=== PATIENT | male | born 1985 ===

== ENCOUNTER 2021-03-10 17:40 | Emergency (ER) | payer OTHER, SELFPAY | END 2021-03-10 22:14 | disposition left against medical advice (07) | PROVIDERS: Emergency Provider Emergency Medicine; PCP Internal Medicine | DX: R05.9 Cough, unspecified (principal); R07.89 Other chest pain ==

== ENCOUNTER 2023-08-20 11:55 | Emergency (ER) | payer OTHER, SELFPAY ==
--- NOTE | ~2023-08-20 | XR_ITS ---
EXAMINATION: XR LUMBOSACRAL SPINE CLINICAL INFORMATION: Pain COMPARISON: None available. TECHNIQUE: Three views of the lumbosacral spine. FINDINGS: Mild curvature of the lumbar sacral spine to the right. Bone alignment is otherwise normal. No fracture or dislocation. Normal disc spaces. Normal paraspinal soft tissues. XR/XR lumbar spine 2-3V IMPRESSION: Mild curvature of the lumbar sacral spine to the right.
--- NOTE | ~2023-08-20 | CT_ITS ---
EXAMINATION: CT LUMBAR SPINE WITHOUT CONTRAST CLINICAL INFORMATION: Midline lumbar tenderness. COMPARISON: X-ray lumbar spine dated 08/20/2023. TECHNIQUE: Multidetector helical imaging acquired in the axial plane with generation of reformatted acquisitions. This CT examination was performed using dose optimization techniques as appropriate, variously including the following: *Automated exposure control *Adjustment of mA and/or kV according to patient size (this includes techniques or standardized protocols for targeted exams where dose is matched to indication/reason for exam; i.e. extremities or head) *Use of iterative reconstruction technique DLP; 559 mGy-cm FINDINGS: No compression fractures are seen. The disc spaces are maintained. No acute fracture or subluxation is identified. No pars defects are visible. Mild lower lumbar facet arthropathy is noted. The imaged bony pelvis is relatively normal. There is a shallow, broad-based central disc protrusion impressing upon the ventral thecal sac at the L4-L5 level without central canal stenosis. Bulging disc also mildly encroaches upon the right neural foramen. There is a small central disc protrusion also visible at the L5-S1 level without central canal stenosis or foraminal narrowing. No significant facet arthropathy is seen. The paraspinal soft tissues are normal. 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 CT/CT lumbar spine wo IV con IMPRESSION: No acute fracture. Mild lower lumbar spondylosis with small disc protrusions at the L4-L5 and L5-S1 levels.
--- NOTE | 2023-08-20 12:01 | ED_ITS ---
HPI - Back Pain/Injury General Chief Complaint: Back Pain/Injury Stated Complaint: back pain down legs Time Seen by Provider: 08/20/23 14:51 Source: patient and RN notes reviewed Mode of arrival: ambulatory Limitations: no limitations History of Present Illness HPI Narrative: 38-year-old male with no significant pmhx presents to the ED today for evaluation of acute right lower back pain occurring prior to arrival. He admits to bending forward to clam picker his grandson and while lifting him up, immediately felt pain in his right lower back. Pain is now radiating down his right leg to his knee. Pain is exacerbated with bearing weight on the right leg. States he tried icy hot at home without improvement in pain. He did not take any other OTC pain medications prior to arrival. He denies numbness/tingling/weakness of the lower extremities. Denies fever, chills, bowel or bladder incontinence or retention, saddle anesthesia, dysuria or hematuria. Denies IV drug use. Denies history of spinal surgeries. Related Data Previous Rx's Medication Instructions Recorded cyclobenzaprine 5 mg tablet 5 mg PO Q8H PRN muscle spasm #7 08/20/23 tabs lidocaine 5 % topical patch 1 patch topical DAILY #15 ea 08/20/23 (Lidoderm) naproxen 500 mg tablet 500 mg PO Q8-12H PRN pain (scale 08/20/23 score 4-6) #14 tabs prednisone 20 mg tablet 20 mg PO DAILY 5 days #5 tabs 08/20/23 Allergies Allergy/AdvReac Type Severity Reaction Status Date / Time No Known Allergies Allergy Unverified 02/08/20 15:25 Review of Systems Review of Systems: Constitutional: No fever, chills, fatigue, night sweats, weight changes ENT/Mouth: No ear pain, hearing loss, nasal congestion, sinus pain, rhinorrhea, sore throat Eyes: No eye pain, swelling, redness, vision changes, discharge Cardio: No chest pain, palpitations, [place], orthopnea, peripheral edema Pulm: No SOB, cough, sputum, wheezing, dyspnea, hemoptysis GI: No nausea, vomiting, hematemesis, abdominal pain, diarrhea, constipation, hematochezia, melena : No irregular bleeding, dysuria, frequency, urgency, hesitancy, hematuria, flank pain, urinary flow changes, urinary incontinence or retention MSK: +back pain, No neck pain, joint pain, myalgias Skin: No lesions, rashes Neuro: No weakness, numbness, paresthesias, LOC, dizziness, headache All other systems reviewed and are negative. [facility] Past Medical History Attestation statement: The following information was validated with the patient. Source: old records reviewed and nursing notes reviewed Social History Social History Advance Directives: No Advance Directives Information Provided: Yes Physical Exam Vital Signs: Vital Signs: Last Vital Signs Temp 97.6 F 08/20/23 19:23 Pulse 60 08/20/23 19:23 Resp 16 08/20/23 19:23 BP 102/63 08/20/23 19:23 Pulse Ox 99 08/20/23 19:23 O2 Del Method Room Air 08/20/23 19:23 BMI result Body Mass Index 34.5 Vital signs stable, afebrile Const: General: cooperative, healthy appearing, comfortable, no acute distress, alert, awake and Physically active Orientation/consciousness: patient oriented x3 HEENT: Head: Yes normal to inspection, Yes normocephalic and Yes atraumatic Eyes: General: appearance normal, both eyes and all related structures Conjunctivae: conjunctivae normal Sclerae: sclerae normal Pupils: Equal, round and reactive pupils present EOM: EOMs intact bilaterally Neck: Other: + no cervical midline spinous tenderness or step-off deformity. Neck: Yes normal visual inspection, Yes full ROM and Yes no meningeal signs Resp: Effort & Inspection: normal respiratory effort Auscultation: clear to auscultation bilaterally Cardio: Rate: regular rate Rhythm: regular rhythm GI: Inspection: Yes normal to inspection Palpation (GI): Soft to palpation and nontender : General: Yes no CVA tenderness Back/Spine/Pelvis: Other: + no midline spinous tenderness or step- off deformity. There is right lumbar paraspinal muscle tenderness to palpation without palpable mass or warmth. Palpable spasm noted over right lumbar paraspinal muscles. Ambulating with antalgic gait secondary to pain. NV intact distally. 2+ opt/dp pulses bilaterally. 2+ patellar DTRs bilaterally. Sensation intact throughout. Back: no CVA tenderness Skin: General skin exam: no rashes or lesions noted Neuro: Other: Strength 5/5 intact throughout.? No saddle anesthesia.? Sensation intact to light touch.? Neurovascular intact distally.? General: patient oriented x3, gait normal and no meningeal signs Cranial nerves: Yes Equal, round and reactive pupils present Gait exam (Neuro): Normal gait present Course Course Course Narrative: This is an RME: Additional HPI, ROS, PE not included below will be deferred to primary provider. Patient is a 38-year-old male who presents emergency department for evaluation of back pain. He reports that he was bending to try and assist his grandson out of a walking type of chair when he was stuck when he felt a sudden pain to the right lower back pain is now radiating down the right leg up to the knee. Denies numbness or tingling. Denies bladder bowel dysfunction. Did not trialed any OTC medication at home. Reports that he is unable to bear weight on the right leg due to the pain. Plan: XR, ibuprofen Reevaluation(s) Reevaluation #1: 1500-- X-ray of lumbar spine shows mild curvature of the lumbar sacral spine to the right. Alignment is otherwise normal and there is no acute fracture or dislocation. There are no previous radiographs to compare to. Patient likely has muscle spasm/strain of the right paraspinal muscles. Will order Flexeril, lidocaine patch and Motrin. 1655-- On re-evaluation, patient reports little improvement in pain an hour after flexeril and motrin administration. I was successful at turning the patient over in bed to apply lidocaine patch however this exacerbated his pain. He is still unable to sit up straight secondary to the pain. He is asking for more pain medication. IV Dilaudid ordered for 10/10 pain. Radiographs essentially unremarkable however given severity of pain, will order CT lumbar spine and re-evaluate. 1899-- CT spine shows mild arthritis of the lumbar spine along with small disc protrusion at L4-L5 and L5-S1. Discussed work up results with patient. He is now able to sit up in bed and ambulate with steady gait to bathroom. Will discharge home with flexeril, naproxen, and prednisone. Patient has remained stable throughout ED visit today. Discussed worrisome signs and symptoms and when to return to the ED. All questions answered at this time. Patient is agreeable with disposition and stable for discharge. Medications Administered Discontinued Medications Generic Name Dose Route Start Last Admin Trade Name Ian PRN Reason Stop Dose Admin Cyclobenzaprine HCl 10 mg 08/20/23 15:01 08/20/23 15:07 Cyclobenzaprine Hcl 10 Mg Tablet PO 08/20/23 15:02 10 mg ONCE ONE Administration Hydromorphone HCl 0.5 mg 08/20/23 16:55 08/20/23 17:08 Hydromorphone Hcl 0.5 Mg/0.5 Ml Syringe IVPUSH 08/20/23 16:56 0.5 mg ONCE ONE Administration Protocol Ibuprofen 600 mg 08/20/23 12:06 08/20/23 12:10 Ibuprofen 600 Mg Tablet PO 08/20/23 12:07 600 mg ONCE ONE Administration Lidocaine 1 patch 08/20/23 15:01 08/20/23 15:07 Lidocaine 4 % Patch Adh..Patch TRANSDERMA 08/20/23 15:02 1 patch ONCE ONE Administration Protocol Medical Decision Making Medical Decision Making MDM Narrative: 38-year-old male with no significant pmhx presents to the ED today for evalu ation of acute right lower back pain occurring prior to arrival. Vital signs are stable. He is nontoxic-appearing and in no acute distress. On exam, there is no midline spinous tenderness or step-off deformity. There is right lumbar paraspinal muscle tenderness to palpation without palpable mass or warmth. Palpable spasm noted over right lumbar paraspinal muscles. Ambulating with antalgic gait secondary to pain. NV intact distally. 2+ pt/dp pulses bilaterally. 2+ patellar DTRs bilaterally. Sensation intact throughout. Differential diagnosis includes MSK sprain/strain, spasm, fracture, subluxation, disc herniation, sciatica. Unlikely cord compression, cauda equina, Guillain- [place], epidural abscess Plan for imaging, pain control and re-evaluation. Differential Diagnosis Differential Diagnoses: The differential diagnosis associated with the presentation includes as above Admission/Observation Not indicated. Independent Interpretation I performed an independent interpretation of an: Plain X-Ray and CT Scan Interpretation: I have reviewed xray and agree with radiologist's interpretation. I have reviewed CT scan and agree with radiologist's interpretation. Radiology Impression Discussion of test interpretation with radiology: I have reviewed the radiologist's reading. Radiologist Impression: EXAMINATION: XR LUMBOSACRAL SPINE CLINICAL INFORMATION: Pain COMPARISON: None available. TECHNIQUE: Three views of the lumbosacral spine. FINDINGS: Mild curvature of the lumbar sacral spine to the right. Bone alignment is otherwise normal. No fracture or dislocation. Normal disc spaces. Normal paraspinal soft tissues. XR/XR lumbar spine 2-3V IMPRESSION: Mild curvature of the lumbar sacral spine to the right. EXAMINATION: CT LUMBAR SPINE WITHOUT CONTRAST CLINICAL INFORMATION: Midline lumbar tenderness. COMPARISON: X-ray lumbar spine dated 08/20/2023. TECHNIQUE: Multidetector helical imaging acquired in the axial plane with generation of reformatted acquisitions. This CT examination was performed using dose optimization techniques as appropriate, variously including the following: *Automated exposure control *Adjustment of mA and/or kV according to patient size (this includes techniques or standardized protocols for targeted exams where dose is matched to indication/reason for exam; i.e. extremities or head) *Use of iterative reconstruction technique DLP; 559 mGy-cm FINDINGS: No compression fractures are seen. The disc spaces are maintained. No acute fracture or subluxation is identified. No pars defects are visible. Mild lower lumbar facet arthropathy is noted. The imaged bony pelvis is relatively normal. There is a shallow, broad-based central disc protrusion impressing upon the ventral thecal sac at the L4-L5 level without central canal stenosis. Bulging disc also mildly encroaches upon the right neural foramen. There is a small central disc protrusion also visible at the L5-S1 level without central canal stenosis or foraminal narrowing. No significant facet arthropathy is seen. The paraspinal soft tissues are normal. 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 CT/CT lumbar spine wo IV con IMPRESSION: No acute fracture. Mild lower lumbar spondylosis with small disc protrusions at the L4-L5 and L5-S1 levels. External Record Review External record reviewed: Inpatient record Prescription Management I considered prescription management with: Pain Medication and Other (flexeril, prednisone) Social Determinants Patient?s care significantly limited by Social Determinants of Health including: Other Social Determinant of Health Critical Care Time Critical Care Time Critical Care Time: Yes Total Critical Care Time: 60 Attestation: Critical care time in the amount of 60 minutes has been provided to the patient in terms of direct patient care, frequent reevaluation on IV dilaudid, review and interpretation of medical data and results, and management of potentially life-threatening conditions. This is all outside of any medical procedures. Discharge Plan Discharge Clinical Impression: Strain of lumbar region, Lumbar radiculopathy Patient Disposition: Home, Self-Care Instructions: Cyclobenzaprine (By mouth), Low Back Strain (ED), Acute Low Back Pain (ED), Back Pain (ED), Lower Back Exercises (ED) Additional Instructions: Your imaging studies today did not show acute fracture. As discussed, the CT of your back shows small disc protrusions at L4-L5 and L5- S1. Avoid bending, lifting, or twisting. Use ice several times per day for 20 minutes at a time for the next 48 hours and then change to heat. Flexeril is a muscle relaxer. Take this at night as it makes you drowsy. Do not drive, drink alcohol, or operate machinery while taking it. Naproxen is an anti-inflammatory / pain medication. Take with food. Do not take this with Ibuprofen. Lidoderm patches are numbing patches. Apply to painful areas. In addition you may take Tylenol at home. Follow up with your primary care provider as needed If your pain worsens, if you develop new numbness, tingling, weakness, loss of bowel or bladder function call 911 or return to the ER immediately for e valuation. Prescriptions: New cyclobenzaprine 5 mg tablet 5 mg PO Q8H PRN (Reason: muscle spasm) Qty: 7 0RF lidocaine [Lidoderm] 5 % adhesive patch,medicated 1 patch topical DAILY Qty: 15 0RF Rx Instructions: leave on most painful area for up to 12 hrs naproxen 500 mg tablet 500 mg PO Q8-12H PRN (Reason: pain (scale score 4-6)) Qty: 14 0RF prednisone 20 mg tablet 20 mg PO DAILY 5 Days Qty: 5 0RF Referrals: ED Physician,Generic [Physician] - Stand Alone Forms: Work/School Release Interventions: ED Discharge Assessment Last Done: 08/20/23 19:23 Discharge Date/Time: 08/20/23 19:38
[2023-08-20 12:03] VITALS: BP 112/76; PULSE 80; RESP 18; TEMP 37; O2SAT 98; BMI 34.5
[2023-08-20] MEDS: Ibuprofen 600 MG TABLET PO (12:10)
--- NOTE | 2023-08-20 14:54 | PC.NURSE ---
Pt had to bed picked up by 2 staff members to get removed from w.c to bed. Pt in pain, back spasms, unable to put weight on legs. reporting pain is in right leg, happened today when he was playing with his grandson
[2023-08-20 14:56] VITALS: BP 128/70; PULSE 67; RESP 16; O2SAT 97
[2023-08-20] MEDS: Cyclobenzaprine HCl 10 MG TABLET PO (15:07)
[2023-08-20] MEDS: Lidocaine 4 % Patch ADH..PATCH 1 PATCH TRANSDERMA (15:07)
[2023-08-20 17:08] VITALS: RESP 22
[2023-08-20] MEDS: HYDROmorphone HCl 0.5 MG/0.5 ML SYRINGE IVPUSH (17:08)
[2023-08-20 18:52] VITALS: BP 102/63; PULSE 60; RESP 16; TEMP 36.4; O2SAT 99
[2023-08-20 19:23] VITALS: BP 102/63; PULSE 60; RESP 16; TEMP 36.4; O2SAT 99
== END 2023-08-20 19:38 | disposition home or self-care (01) ==
PROVIDERS: Emergency Provider Emergency Medicine Emergency Medical Services; PCP Internal Medicine
DX: S39.012A Strain of muscle, fascia and tendon of lower back, initial encounter (principal); M54.16 Radiculopathy, lumbar region; X58.XXXA Exposure to other specified factors, initial encounter; Y93.9 Activity, unspecified; Y92.9 Unspecified place or not applicable; Y99.8 Other external cause status
CPT/HCPCS: 72100; 72132; 96374; 99284; 99285; J1170

== ENCOUNTER 2025-02-01 16:40 | Emergency (ER) | payer OTHER, SELFPAY ==
[2025-02-01 16:58] VITALS: BP 109/67; PULSE 69; RESP 16; TEMP 36.8; O2SAT 98; BMI 26.6
--- NOTE | 2025-02-01 17:01 | ED.GENADULT ---
HPI - General Adult General Chief complaint: Abdominal Pain Stated complaint: abd pain left side Related Data Previous Rx's ?Medication ?Instructions ?Recorded cyclobenzaprine 5 mg tablet 5 mg PO Q8H PRN muscle spasm #7 08/20/23 tabs lidocaine 5 % topical patch 1 patch topical DAILY #15 ea 08/20/23 (Lidoderm) naproxen 500 mg tablet 500 mg PO Q8-12H PRN pain (scale 08/20/23 score 4-6) #14 tabs prednisone 20 mg tablet 20 mg PO DAILY 5 days #5 tabs 08/20/23 Allergies Allergy/AdvReac Type Severity Reaction Status Date / Time No Known Allergies Allergy Verified 02/01/25 16:59 [facility] Social History Social History Advance Directives: No Advance Directives Information Provided: No Physical Exam ED Vital Signs: Vital Signs - 24 hr 02/01/25 16:58 Temperature 98.3 F Pulse Rate 69 Respiratory Rate 16 Blood Pressure 109/67 Pulse Oximetry 98 Oxygen Delivery Method Room Air BMI result Body Mass Index 26.6 Course Course Course Narrative: This is a Rapid Medical Examination (RME) performed by James Herman PA-C in triage. Full HPI, ROS, assessment and treatment plan per primary provider in the Main ED. Hx: 39 yo M here for eval of left sided abd pain since this morning, intermittent. no N/V/D, urinary sx. Plan: labs, UA Reevaluation(s) Reevaluation #1: Patient left the emergency department before myself or any of the other clinicians could review or explain physical exam findings, test results, need or lack there of for additional testing, treatment options, or a treatment plan. Medical Decision Making Lab Data 02/01/25 17:08 02/01/25 17:08 Labs: Lab Results 02/01/25 Range/Units 17:08 WBC 7.6 (4.8-10.8) X10*3/uL RBC 5.32 (4.60-5.80) X10*6/uL Hgb 15.4 (14.0-18.0) g/dl Hct 44.9 (42.0-52.0) % MCV 84.4 (80.0-98.0) fL MCH 28.9 (27.0-33.0) pg MCHC 34.3 (31.0-36.0) g/dl RDW 11.9 (11.0-16.0) % Plt Count 260 (160-400) X10*3/uL MPV 9.6 (9.4-12.4) fL Immature Gran % (Auto) 0.5 H (0.0-0.4) % Neut % (Auto) 57.9 (45-73) % Lymph % (Auto) 32.6 (20-40) % [place] % (Auto) 7.7 (2-11) % Eos % (Auto) 1.2 (0-4) % Baso % (Auto) 0.1 (0-2) % Lymph # (Auto) 2.5 (1.2-4.9) X10*3/uL [place] # (Auto) 0.6 (0.1-1.2) X10*3/uL Eos # (Auto) 0.1 (0.0-0.4) X10*3/uL Baso # (Auto) 0.0 (0.0-0.2) X10*3/uL Abs Immat Gran (auto) 0.04 H (0.00-0.03) X10*3/uL Absolute Neuts (auto) 4.4 (2.0-8.3) x10*3/uL Absolute Nucleated RBC 0.000 (0.0-0.012) X10*3/uL Nucleated RBC % (auto) 0.0 (0.0-0.2) /100WBC Sodium 141 (135-145) mmol/L Potassium 4.1 (3.3-5.1) mmol/L Chloride 109 H (96-108) mmol/L Carbon Dioxide 24 (22-29) mmol/L Anion Gap 12 (12-20) BUN 10 (9-16) mg/dL Creatinine 1.12 (0.5-1.4) mg/dL Estim Creat Clear Calc 83.9 Estimated GFR > 60 Random Glucose 89 (60-115) mg/dL Calcium 8.8 (8.4-10.2) mg/dL Magnesium 2.1 (1.6-2.6) mg/dL Total Bilirubin 0.3 (0.0-1.0) mg/dL AST 22 (5-37) U/L ALT 18 (0-40) U/L Alkaline Phosphatase 73 (39-117) U/L Total Protein 7.1 (6.5-8.0) g/dL Albumin 4.2 (3.5-5.0) g/dL Lipase 39 (8-78) U/L Discharge Plan Discharge Clinical Impression: Abdominal pain Patient Disposition: Left W/O Completing Treatment Prescriptions: No Action cyclobenzaprine 5 mg tablet 5 mg PO Q8H PRN (Reason: muscle spasm) Qty: 7 0RF lidocaine [Lidoderm] 5 % adhesive patch,medicated 1 patch topical DAILY Qty: 15 0RF Rx Instructions: leave on most painful area for up to 12 hrs naproxen 500 mg tablet 500 mg PO Q8-12H PRN (Reason: pain (scale score 4-6)) Qty: 14 0RF prednisone 20 mg tablet 20 mg PO DAILY 5 Days Qty: 5 0RF Discharge Date/Time: 02/01/25 23:06
[2025-02-01 17:14] LABS: MANUAL DIFF FLAG NO
[2025-02-01 17:15] LABS: Hematocrit 44.9 % (42.0-52.0); Hemoglobin 15.4 g/dl (14.0-18.0); Imm Gran Abs Auto 0.04 X10*3/uL (0.00-0.03); Imm Gran Pct Auto 0.5 % (0.0-0.4); Lymphocytes Absolute Auto 2.5 X10*3/uL (1.2-4.9); Mean Corpuscular HGB Conc 34.3 g/dl (31.0-36.0); Mean Corpuscular Hemoglobin 28.9 pg (27.0-33.0); Mean Corpuscular Volume 84.4 fL (80.0-98.0); NRBC Abs Auto 0.000 X10*3/uL (0.0-0.012); NRBC Pct Auto 0.0 /100WBC (0.0-0.2); Platelet Count 260 X10*3/uL (160-400); Red Blood Count 5.32 X10*6/uL (4.60-5.80); White Blood Count 7.6 X10*3/uL (4.8-10.8)
[2025-02-01 17:28] LABS: Alanine Aminotransferase 18 U/L (0-40); Albumin Level 4.2 g/dL (3.5-5.0); Alkaline Phosphatase 73 U/L (39-117); Anion Gap 12 (12-20); Aspartate Amino Transferase 22 U/L (5-37); Blood Urea Nitrogen 10 mg/dL (9-16); Calcium 8.8 mg/dL (8.4-10.2); Carbon Dioxide 24 mmol/L (22-29); Chloride 109 mmol/L (96-108); Creatinine Clr Calc Pharmacy 83.9; Estimated Glomerular Filt Rate > 60; Lipase 39 U/L (8-78); Magnesium 2.1 mg/dL (1.6-2.6); Potassium 4.1 mmol/L (3.3-5.1); Sodium 141 mmol/L (135-145); Total Protein 7.1 g/dL (6.5-8.0)
--- OUTSIDE RECORDS SUMMARY | 2025-02-01 23:06 | XMS_ITS | Clinical Summary ---
Author Organization [facility] [address] [place] [address] [place] [phone] Phone Care Team Providers Care Correspondence Clerk Name Role Phone Shashank Caldera MD Primary Care Provider [phone] Allergies No known active allergies Medications cyclobenzaprine (FLEXERIL) 10 mg tablet Take 1 tablet (10 mg total) by mouth 3 (three) times a day if needed. 08/24/2023 Active lidocaine (LIDODERM) 5 % patch Place 1 Patch onto the skin every 24 hours. Apply for no more than 12 hours in any 24 hour period. 08/24/2023 Active carBAMazepine (CARBATROL) 200 mg 12 hr capsule Take 600 mg by mouth 3 times daily. Active levETIRAcetam (KEPPRA) 500 mg tablet Take by mouth. 4 tabs twice daily Active zonisamide (ZONEGRAN) 100 mg capsule Take 6 Caps by mouth daily. 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 Low back pain 03/12/2014 Seizure disorder (CMS/HCC V24, CMS/HCC V28) 02/22 Encounters Date Type Department Care Team Description 11/21/2024 9:00 AM EDT Office Visit Adult Medicine [address] [phone] Shashank Caldera MD Routine physical examination (Primary Dx); High cholesterol; Screening for diabetes mellitus; Seizure disorder (CMS/HCC V24, CMS/HCC V28) from Last 3 Months Immunizations Name Administration Dates Next Due Tdap Tetanus diptheria acell ular pertussis (Boostrix; Adacel) 7yo and older 11/21/2024,05/03/2014 Medical History Medical History Date Comments Seizure disorder ([facility] V24, CMS/[facility] V28) 02/22 DX:Seizure disorder (HCC) Family History Medical History Relation Name Comments Hypertension Father Diabetes Mother Relation Name Status Comments Father Mother Social History Tobacco Use Types Packs/Day Years Used Date Smoking Tobacco: Every Day Cigarettes Smokeless Tobacco: Never Tobacco Cessation:Ready to Q uit: Not Asked; Counseling Given: Not Answered Alcohol Use Standard Drinks/Week Comments Yes 0 (1 standard drink = 0.6 oz pur e alcohol) occ Housing Instability Answer Date Recorde d Are you worried that in the next 2 months you may not have stable housing? No 11/21/2024 Food Access & Nutrition Answer Date Rec orded Do you have access to a vari ety of food including fruits and vegetables? Yes 11/21/2024 Access to Healthcare Answer Date Record ed Within the last 3 months, sonja castaneda many times did you visit the emergency department for your medical care? 0 11/21/2024 Health Literacy Answer Date Recorded How often do you need to hav e someone help you when you read instructions, pamphlets, or other written material from your doctor or pharmacy? Never 11/21/2024 Caregiver: How often do you need to have someone help you when you read instructions, pamphlets, or other written material from your doctor or pharmacy? Not on file 11/21/2024 Financial Risk Answer Date Recorded How hard is it for you to pa y for the very basics like food, housing, medical care, and air conditioning / heating? Not very hard 11/21/2024 Transportation Answer Date Recorded Has the lack of transportati on kept you from meetings, work, or from getting things needed for daily living? No Has the lack of transportati on kept you from medical appointments or from getting medications? No 11/21/2024 Social Isolation Answer Date Recorded How often do you feel lonely or isolated from th ose around you? Never 11/21/2024 Food Risk Answer Date Recorded Within the past 12 months we worried whether our food would run out before we got money to buy more. Never true 11/21/2024 Within the past 12 months th e food we bought just didn't last and we didn't have money to get more. Never true 11/21/2024 Dependent Care Answer Date Recorded Do you need help finding or paying for care for your loved ones. For example, child welfare caseworker or elderly care for an older adult? No 11/21/2024 Education Answer Date Recorded Do you think completing more education or training, like finishing a GED, going to college, or learning a trade, would be helpful for you? No 11/21/2024 Employment and Income Answer Date Recor ded During the last four weeks, have you been actively looking for work? No 11/21/2024 Living Situation Answer Date Recorded What is your living situation? 0 11/21/2024 Sex and Gender Information Value Date Recorded Sex Assigned at Not on file Legal Sex Male 12:59 AM EST Gender Identity Not on file Sexual Orientation Not on file Obstetrics History Last Filed Vital Signs Vital Sign Reading Time Taken Comments Blood Pressure 110/66 11/21/2024 8:47 AM EDT Pulse 88 11/21/2024 8:47 AM EDT Temperature 36.6 C (97.8 F) 11/21/2024 8:47 AM EDT Respiratory Rate 14 11/21/2024 8:47 AM EDT Oxygen Saturation 98% 11/21/2024 8:47 AM EDT Inhaled Oxygen Concentration - - Weight 81.6 kg (180 lb) 11/21/2024 8:47 AM EDT Height 167.6 cm (5' 6 ) 11/21/2024 8:47 AM EDT Body Mass Index 29.05 11/21/2024 8:47 AM EDT Plan of Treatment Upcoming Encounters Date Type Department Care Team (Late st Contact Info) Description 11/28/2025 9:00 AM EDT Office Visit Adult Medicine [address] [phone] Shashank Caldera MD [address] [place] [address] Health Maintenance Due Date Last Done Comments Pneumococcal Vaccine: Pediatrics (0 to 5 Years) and At-Risk Patients (6 to 49 Years) (2 of 2 - PCV) 07/16/2011 07/16/2010 HIV Screening 05/02/2022 Hepatitis C Screening 05/02/2022 COVID-19 Vaccine (3 - season) 2025 11/13/2020, 10/23/2020 Influenza Vaccine (#1) 2025 07/15/2016, 2010 Social Influencers of Health Screening 11/21/2025 11/21/2024 Cholesterol Screening (Lipid Panel) 11/21/2029 11/21/2024, 01/19/2023 DTaP,Tdap,and Td Vaccines (8 - Td or Tdap) 11/21/2034 11/21/2024, 05/03/2014, 05/29/1999, Additional history exists IPV Vaccines Completed 12/23/1988, 06/24, 07/14/1984, Additional history exists MMR Vaccines Completed 03/23/1995, 05/18/1989 Hepatitis B Vaccines Completed 06/17/2000, 07/22/1999, 05/29/1999 Depression Screening Completed 11/21/2024 HIB Vaccines Aged Out No longer eligi ble based on patient's age to complete this topic HPV Vaccines Aged Out No longer eligi ble based on patient's age to complete this topic Hepatitis A Vaccines Aged Out No long er eligible based on patient's age to complete this topic Meningococcal ACWY Vaccine Aged Out N o longer eligible based on patient's age to complete this topic Meningococcal B Vaccine Aged Out No l onger eligible based on patient's age to complete this topic RSV Immunization Patients Under 20 months Aged Out No longer eligible based on patient's age to complete this topic Varicella Vaccines Aged Out No longer eligible based on patient's age to complete this topic Procedures Procedure Name Priority Date/Time Associated Diagnosis Comments CBC WITH AUTO DIFFERENTIAL Routine 11/21/2024 9:41 AM EDT Routine physical examination LIPID PANEL WITH REFLEX TO DIRECT LDL Routine 11/21/2024 9:41 AM EDT Routine physical examination High cholesterol CBC AND DIFFERENTIAL Routine 11/21/2024 9:41 AM EDT Routine physical examination COMPREHENSIVE METABOLIC PANEL Routine 11/21/2024 9:41 AM EDT Routine physical examination Screening for diabetes mellitus from Last 3 Months Results * (ABNORMAL) Lipid panel with reflex to direct LDL (11/21/2024 9:41 AM EDT) Cholesterol 173 0 - 200 mg/dL LAB CHEMISTRY METHOD 11/21/2024 2:05 PM EDT [facility] Triglycerides 163(H) 0 - 150 mg/dL LAB CHEMISTRY METHOD 11/21/2024 2:05 PM EDT [facility] HDL 33(L) >=40 mg/dL LAB CHEMISTRY METHOD 11/21/2024 2:05 PM EDT [facility] LDL Calculated 107(H) 0 - 100 mg/dL LAB CHEMISTRY METHOD 11/21/2024 2:05 PM EDT [facility] VLDL Cholesterol Dav 32.6 mg/dL LAB CHEMISTRY METHOD 11/21/2024 2:05 PM EDT [facility] Non HDL Chol. (LDL+VLDL) 140 <145 mg/dL LAB CHEMISTRY METHOD 11/21/2024 2:05 PM EDT [facility] Chol/HDL Ratio 5.2(H) 0.0 - 4.4 LAB CHEMISTRY METHOD 11/21/2024 2:05 PM T [facility] Blood Venous blood specimen / Unknown Venipuncture / Unknown 11/21/2024 9:41 AM EDT 11/21/2024 9:41 AM EDT us Shashank Caldera MD LAB BLOOD ORDERABLES Final Resu lt [facility] [address] [place] [address], * (ABNORMAL) CBC auto differential (11/21/2024 9:41 AM EDT) Pathologist [facility] WBC 6.7 4.8 - 10.8 K/mcL LAB HEMETOLOGY METHOD 11/21/2024 12:15 PM T [facility] RBC 5.50 4.50 - 5.50 M/mcL LAB HEMETOLOGY METHOD 11/21/2024 12:[address] [facility] Hemoglobin 16.3 13.5 - 17.5 g/dL LAB HEMETOLOGY METHOD 11/21/2024 12:[address] [facility] Hematocrit 48.3 42.0 - 54.0 % LAB HEMETOLOGY METHOD 11/21/2024 12:[address] [facility] MCV 88.1 79.0 - 98.0 FL LAB HEMETOLOGY METHOD 11/21/2024 12:[address] [facility] MCH 29.7 27.0 - 32.0 pcg LAB HEMETOLOGY METHOD 11/21/2024 12:[address] [facility] MCHC 33.7 32.0 - 37.0 g/dL LAB HEMETOLOGY METHOD 11/21/2024 12:[address] [facility] RDW 12.1 11.0 - 15.0 % LAB HEMETOLOGY METHOD 11/21/2024 12:[address] [facility] Platelets 218 130 - 400 K/mcL LAB HEMETOLOGY METHOD 11/21/2024 12:[address] [facility] MPV 11.5(H) 7.0 - 11.0 FL LAB HEMETOLOGY METHOD 11/21/2024 12:[address] [facility] NRBC 0.0 <1.0 % LAB HEMETOLOGY METHOD 11/21/2024 12:[address] [facility] NRBC Absolute 0.00 <0.10 K/mcL LAB HEMETOLOGY METHOD 11/21/2024 12:[address] [facility] Neutrophils Relative 61.3 % LAB HEMETOLOGY METHOD 11/21/2024 12:[address] [facility] Lymphocytes Relative 29.1 % LAB HEMETOLOGY METHOD 11/21/2024 12:[address] [facility] Monocytes Relative 7.7 % LAB HEMETOLOGY METHOD 11/21/2024 12:[address] [facility] Eosinophils Relative 1.0 % LAB HEMETOLOGY METHOD 11/21/2024 12:[address] [facility] Basophils Relative 0.3 % LAB HEMETOLOGY METHOD 11/21/2024 12:[address] [facility] Immature Granulocytes Relative 0.6 % LAB HEMETOLOGY METHOD 11/21/2024 12:[address] [facility] Neutrophils Absolute 4.13 1.50 - 7.00 K/mcL LAB HEMETOLOGY METHOD 11/21/2024 12:[address] [facility] Lymphocytes Absolute 1.96 1.00 - 5.00 K/mcL LAB HEMETOLOGY METHOD 11/21/2024 12:[address] [facility] Monocytes Absolute 0.52 0.20 - 1.00 K/mcL LAB HEMETOLOGY METHOD 11/21/2024 12:[address] [facility] Eosinophils Absolute 0.07 0.00 - 0.50 K/mcL LAB HEMETOLOGY METHOD 11/21/2024 12:[address] [facility] Basophils Absolute 0.02 0.00 - 0.20 K/mcL LAB HEMETOLOGY METHOD 11/21/2024 12:[address] [facility] Immature Granulocytes Absolute 0.04(H) 0.00 - 0.03 K/mcL LAB HEMETOLOGY METHOD 11/21/2024 12:[address] [facility] Blood Venous blood specimen / Unknown Venipuncture / Unknown 11/21/2024 9:41 AM EDT 11/21/2024 9:41 AM EDT us Shashank Caldera MD LAB BLOOD ORDERABLES Final Resu lt [facility] [address] [place] [address], [place] [phone] * (ABNORMAL) Comprehensive metabolic panel (11/21/2024 9:41 AM EDT) Sodium 140 133 - 145 mmol/L LAB CHEMISTRY METHOD 11/21/2024 2:[address] [facility] Potassium 4.2 3.5 - 5.5 mmol/L LAB CHEMISTRY METHOD 11/21/2024 2:[address] [facility] Chloride 111(H) 96 - 110 mmol/L LAB CHEMISTRY METHOD 11/21/2024 2:[address] [facility] CO2 23 21 - 32 mmol/L LAB CHEMISTRY METHOD 11/21/2024 2:[address] [facility] Anion Gap 6 3 - 11 LAB CHEMISTRY METHOD 11/21/2024 2:[address] [facility] Glucose 87 70 - 100 mg/dL LAB CHEMISTRY METHOD 11/21/2024 2:[address] [facility] BUN 8 5 - 25 mg/dL LAB CHEMISTRY METHOD 11/21/2024 2:[address] [facility] Creatinine 1.04 0.70 - 1.30 mg/dL LAB CHEMISTRY METHOD 11/21/2024 2:[address] [facility] eGFR 93 >=60 mL/min/1. 73m2 LAB CHEMISTRY METHOD 11/21/2024 2:[address] [facility] Comment:Calculation based on the Chronic Kidney Disease Epidemiology Collaboration (CKD-EPI) equation refit without adjustment for race. BUN/Creatinine Ratio 7.7 LAB CHEMISTRY METHOD 11/21/2024 2:[address] [facility] Calcium 9.2 8.5 - 10.5 mg/dL LAB CHEMISTRY METHOD 11/21/2024 2:05 PM EDT [facility] AST (SGOT) 23 10 - 42 unit/L LAB CHEMISTRY METHOD 11/21/2024 2:[address] [facility] ALT (SGPT) 29 10 - 60 unit/L LAB CHEMISTRY METHOD 11/21/2024 2:[address] [facility] Alkaline Phosphatase 89 42 - 121 unit/L LAB CHE[facility]STRY METHOD [facility] Total Protein 7.2 6.0 - 8.0 g/dL LAB CHEMISTRY METHOD 11/21/2024 2:[address] [facility] Albumin 3.8 3.2 - 5.0 g/dL LAB CHEMISTRY METHOD 11/21/2024 2:[address] [facility] Total Bilirubin 0.3 0.0 - 1.4 mg/dL LAB CHEMISTRY METHOD 11/21/2024 2:[address] [facility] Blood Venous blood specimen / Unknown Venipuncture / Unknown 11/21/2024 9:41 AM EDT 11/21/2024 9:41 AM EDT us Shashank Caldera MD LAB BLOOD ORDERABLES Final Resu lt [facility] [address] [place] [address], from Last 3 Months Insurance [facility] [employer] Care Teams Correspondence Clerk Relationship Specialty Start Date End Date Shashank Caldera MD PCP - General Internal Medicine 01/05/14
--- OUTSIDE RECORDS SUMMARY | 2025-02-01 23:07 | XMS_ITS | Clinical Summary ---
Author Organization [facility] Address [address] [place] [address] Phone Care Team Providers Care Package Maker Name Role Phone Oliver Zarate Primary Care Provider Immunizations Immunization Administration Dates Next Due DTP 12/23/1988, 7,07/14/1984,1983 Hep B, ped/adol 06/17/2000,07/22/1999,05/29/1999 MMR 03/23/1995,05/18/1989 OPV 12/23/1988, 7,07/14/1984,1983 Td (adult) (MBL), 2 Lf tetan us toxoid, PF, adsorbed 05/29/1999 Social History Tobacco Use Types Packs/Day Years Used Date Smoking Tobacco: Never Assessed Sex and Gender Information Value Date Recorded Sex Assigned at Not on file Legal Sex Male 4:42 PM EDT Gender Identity Not on file Sexual Orientation Not on file Plan of Treatment Health Maintenance Due Date Last Done Comments Varicella Vaccines (1 of 2 - 13+ 2-dose series) 1996 DTaP,Tdap,and Td Vaccines (5 - Tdap) 05/30/1999 05/29/1999, 12/23/1988, 07/12/1986, Additional history exists HPV Vaccines (1 - 3-dose SCDM series) 2010 Influenza Vaccines (#1) 2024 COVID-19 Vaccine ( - season) 2025 IPV Vaccines Completed 12/23/1988, 06/24, 07/14/1984, Additional history exists MMR Vaccines Completed 03/23/1995, 05/18/1989 Hepatitis B Vaccines Completed 06/17/2000, 07/22/1999, 05/29/1999 HIB Vaccines Aged Out No longer eligi ble based on patient's age to complete this topic Hepatitis A Vaccines Aged Out No long er eligible based on patient's age to complete this topic Men B Vaccine Aged Out No longer elig ible based on patient's age to complete this topic Meningococcal Vaccine Aged Out No gustavo david eligible based on patient's age to complete this topic Pneumococcal Vaccine Aged Out No long er eligible based on patient's age to complete this topic Care Teams Package Maker Relationship Specialty Start Date End Date Oliver Zarate [address] [place] [address] PCP - General 01/01/17
--- OUTSIDE RECORDS SUMMARY | 2025-02-01 23:07 | XMS_ITS | Encounter Summary ---
Author Organization [facility] Address [address] [place] [phone] Phone Care Team Providers Care Physician Office Secretary Name Role Phone Oliver Zarate Primary Care Provider [phone] Encounter Details Date Type Department Care Team (Late st Contact Info) Description 03/24/2012 Documentation [facility] [place] [address] [place] [address] Family Medicine, Physician [address] [place], [place] [phone] Social History Tobacco Use Types Packs/Day Years Used Date Smoking Tobacco: Never Assessed Sex and Gender Information Value Date Recorded Sex Assigned at Not on file Legal Sex Male 4:42 PM EDT Gender Identity Not on file Sexual Orientation Not on file documented as of this encounter Plan of Treatment Not on file documented as of this encounter Visit Diagnoses Not on filedocumented in this encounter Care Teams Physician Office Secretary Relationship Specialty Start Date End Date Oliver Zarate [address] [place] [address] PCP - General 01/01/17 documented as of this encounter
== END 2025-02-01 23:06 | disposition left against medical advice (07) ==
PROVIDERS: Physician Assistant Medical; Emergency Provider Emergency Medicine; PCP Internal Medicine
DX: R10.9 Unspecified abdominal pain (principal); Z53.21 Procedure and treatment not carried out due to patient leaving prior to being seen by health care provider
CPT/HCPCS: 36415; 80053; 83690; 83735; 85025; 99281; 99283

== ENCOUNTER 2025-02-03 12:59 | Emergency (ER) | payer OTHER, SELFPAY ==
--- NOTE | ~2025-02-03 | CT_ITS ---
CLINICAL HISTORY: LLQ abd pain CT abdomen and pelvis with contrast Comparison: None provided Findings: Hiatal hernia. 90 degree organoaxial rotation of the right kidney with the renal pelvis ventral and position. There is diffuse fecal material seen throughout the colon. Proximal sigmoid colon pericolonic area of hyperattenuating rim low-attenuation center, 1.2 x 1 cm, image number 71 of 117 series 3. The appendix is within normal limits. The prostate is within normal limits. The bones are intact. IMPRESSION: 1. Proximal sigmoid colon epiploic appendagitis. 2. Constipation. This document has been electronically signed by: Mervin Warren MD on 02/03/2025 16:50:34
[2025-02-03 13:09] VITALS: BP 104/60; PULSE 85; RESP 18; TEMP 36.7; O2SAT 94; BMI 27.4
--- NOTE | 2025-02-03 13:10 | ED.GENADULT ---
HPI - General Adult General Chief complaint: Abdominal Pain Stated complaint: abd pain Time Seen by Provider: 02/03/25 15:00 Source: patient Mode of arrival: ambulatory Limitations: no limitations History of Present Illness ED Provider: FLORES HERMAN PA-C HPI narrative: 39-year-old male presents to the ED today for evaluation of abdominal pain x4 days. Reports pain is localized to his left lower abdomen and has been intermittent since onset. Describes this as a cramping sensation. Pain is currently a 9/10. 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 Denies history of similar. Reports 1 episode of loose stool yesterday. Denies fever, chills, nausea, vomiting, urinary symptoms, flank pain. No history of abdominal surgery. Related Data Previous Rx's ?Medication ?Instructions ?Recorded cyclobenzaprine 5 mg tablet 5 mg PO Q8H PRN muscle spasm #7 08/20/23 tabs lidocaine 5 % topical patch 1 patch topical DAILY #15 ea 08/20/23 (Lidoderm) naproxen 500 mg tablet 500 mg PO Q8-12H PRN pain (scale 08/20/23 score 4-6) #14 tabs prednisone 20 mg tablet 20 mg PO DAILY 5 days #5 tabs 08/20/23 ibuprofen 600 mg tablet 600 mg PO Q8H PRN pain (scale 02/03/25 score 4-6) #30 tabs Allergies Allergy/AdvReac Type Severity Reaction Status Date / Time No Known Allergies Allergy Verified 02/03/25 13:11 Review of Systems Review of Systems: Yes all other systems are reviewed and are negative PMFSH Past Medical History Attestation statement: The following information was validated with the patient. Source: old records reviewed and nursing notes reviewed Social History Social History Advance Directives: No Advance Directives Information Provided: No Do you have a plan to hurt others: No Plan Physical Exam ED Vital Signs: Vital Signs - 24 hr 02/03/25 13:09 02/03/25 14:44 02/03/25 16:29 Temperature 98.1 F Pulse Rate 85 72 65 Respiratory Rate 18 18 18 Blood Pressure 104/60 101/56 L 99/62 Pulse Oximetry 94 97 98 Oxygen Delivery Method Room Air Room Air Room Air BMI result Body Mass Index 27.4 Vital signs stable General: Well appearing, in no acute distress. Skin: Warm, dry, intact. No rashes or lesions. Head: Normocephalic, atraumatic. EENT: Hearing is intact b/l. Conjunctiva clear. Sclera is anicteric. PERRLA. EOM intact. Moist mucous membranes.? Cardiac: Chest wall symmetric. RRR Lungs: Normal respiratory effort without accessory muscle use. CTA bilaterally Abdomen: soft, nondistended, tender to palpation of left lower quadrant with guarding. No rebound tenderness. Active bowel sounds x4. Back: No midline spinous or paraspinal tenderness. No step off deformity. no cvat. Ext: Upper and lower extremities atraumatic, without tenderness, deformity, swelling or erythema Neuro: AOx3. Normal speech. Ambulating with steady gait. Course Course Course Narrative: Rapid medical examination performed in triage by Estefanía Harris PA-C. Patient is a 39 year old assigned male at presenting to the emergency department with abdominal pain. Detailed physical exam and review of systems are deferred to the astronaut mission specialist. Labs ordered. Patient placed back in the waiting room pending room availability and results. Reevaluation(s) Reevaluation #1: CBC without leukocytosis or left shift. No anemia. H&H stable. Chemistry without acute electrolyte abnormality requiring intervention. No LUZ. Random glucose 124 without anion gap. Liver function WNL. Urine without infection. CT abdomen/pelvis showing normal appendix. There is diffuse fecal material seen throughout the colon consistent with constipation. Proximal sigmoid colon epiploic appendagitis, consistent with presentation. > discussed workup results with patient. He reports relief after receiving Toradol and IV fluids. Educated patient on pain control. Motrin sent to pharmacy. Advised to follow up with general surgery if pain continues. No surgical intervention warranted at this time. Patient has remained stable throughout ED visit today. Discussed worrisome signs and symptoms and when to return to the ED. All questions answered at this time. Patient is agreeable with disposition and stable for discharge. Medications Administered Discontinued Medications Generic Name Dose Route Start Last Admin Trade Name Freq PRN Reason Stop Dose Admin Sodium Chloride 1,000 mls @ 999 mls/hr 02/03/25 15:30 02/03/25 17:08 Ns IV 02/03/25 16:30 Infused .Q1H1M ALEJANDRA Infusion Iohexol 100 ml 02/03/25 16:01 02/03/25 16:01 Iohexol 350 Mg/Ml 100 Ml Infus..Btl IV 02/03/25 16:02 85 ml ONCE ONE Administration Ketorolac Tromethamine 15 mg 02/03/25 15:17 02/03/25 15:42 Ketorolac Tromethamine 15 Mg/Ml Vial IVPUSH 02/03/25 15:18 15 mg ONCE ONE Administration Medical Decision Making Medical Decision Making [facility] Narrative: 39-year-old male presents to the ED today for evaluation of abdominal pain x4 days. Patient is well-appearing, lying comfortably on the exam bed. On exam, abdomen is soft, nondistended, tender to palpation of left lower quadrant with guarding. No rebound tenderness. Active bowel sounds x4. Differential diagnoses: appendicitis, diverticulitis, diverticulosis, UTI, constipation Abdominal exam without peritoneal signs. No evidence of acute abdomen at this time. Well appearing. Low suspicion for acute hepatobiliary disease (including acute cholecystitis), acute infectious processes (pneumonia, hepatitis, pyelonephritis), vascular catastrophe, bowel obstruction or viscus perforation, testicular torsion, orchitis, epidydymitis. Presentation not consistent with other acute, emergent causes of abdominal pain at this time. Plan: labs, UA, CT AP, pain control, fluids, serial reassessment Differential Diagnosis Differential Diagnoses: The differential diagnosis associated with the presentation includes As above Admission/Observation not indicated. Lab Data [facility] Lab Attestation statement: I reviewed the patient's lab results. as above. 02/03/25 13:31 02/03/25 13:31 Labs: Lab Results 02/03/25 02/03/25 Range/Units 13:31 16:31 WBC 6.6 (4.8-10.8) X10*3/uL RBC 5.36 (4.60-5.80) X10*6/uL Hgb 15.8 (14.0-18.0) g/dl Hct 44.7 (42.0-52.0) % MCV 83.4 (80.0-98.0) fL MCH 29.5 (27.0-33.0) pg MCHC 35.3 (31.0-36.0) g/dl RDW 11.9 (11.0-16.0) % Plt Count 259 (160-400) X10*3/uL MPV 9.5 (9.4-12.4) fL Immature Gran % (Auto) 0.3 (0.0-0.4) % Neut % (Auto) 61.5 (45-73) % Lymph % (Auto) 30.9 (20-40) % [place] % (Auto) 6.5 (2-11) % Eos % (Auto) 0.8 (0-4) % Baso % (Auto) 0.0 (0-2) % Lymph # (Auto) 2.0 (1.2-4.9) X10*3/uL [place] # (Auto) 0.4 (0.1-1.2) X10*3/uL Eos # (Auto) 0.1 (0.0-0.4) X10*3/uL Baso # (Auto) 0.0 (0.0-0.2) X10*3/uL Abs Immat Gran (auto) 0.02 (0.00-0.03) X10*3/uL Absolute Neuts (auto) 4.1 (2.0-8.3) x10*3/uL Absolute Nucleated RBC 0.000 (0.0-0.012) X10*3/uL Nucleated RBC % (auto) 0.0 (0.0-0.2) /100WBC Sodium 141 (135-145) mmol/L Potassium 3.9 (3.3-5.1) mmol/L Chloride 109 H (96-108) mmol/L Carbon Dioxide 24 (22-29) mmol/L Anion Gap 12 (12-20) BUN 9 (9-16) mg/dL Creatinine 1.13 (0.5-1.4) mg/dL Estim Creat Clear Calc 86.8 Estimated GFR > 60 Random Glucose 124 H (60-115) mg/dL Calcium 9.1 (8.4-10.2) mg/dL Magnesium 2.1 (1.6-2.6) mg/dL Total Bilirubin 0.5 (0.0-1.0) mg/dL AST 23 (5-37) U/L ALT 17 (0-40) U/L Alkaline Phosphatase 79 (39-117) U/L Total Protein 7.3 (6.5-8.0) g/dL Albumin 4.3 (3.5-5.0) g/dL Urine Color Yellow Urine Appearance Clear Urine pH 6.5 (5.0-9.0) Ur Specific [place] 1.020 (1.005-1.025) Urine Protein Negative (Neg-Trace) mg/dL Urine Glucose (UA) Negative (Negative) mg/dL Urine Ketones Negative (Negative) mg/dL Urine Blood Negative (Negative) Urine Nitrite Negative (Negative) Ur Leukocyte Esterase Negative (Negative) Independent Interpretation I performed an independent interpretation of an: CT Scan Interpretation: ct a/p without bowl obstruction, no periappendiceal edema Radiology Impression Discussion of test interpretation with radiology: I have reviewed the radiologist's reading. Radiologist Impression: Procedure(s): CT abdomen pelvis w IV con Accession Number(s): [id number] cc: Shashank Caldera III, MD; Flores Herman~ Report Number: [id number]: Total DLP = 544.00 mGy-cm Reason for Exam: LLQ abd pain ADDENDUMThis document has been electronically signed by: Mervin Warren MD on 02/03/2025 16:50:34 ADDENDUM: This report was discussed with Batsheva BARLOW on Feb 03, 2025 16:56:00 EDT. This document has been electronically signed by: Ramona Boland on 02/03/2025 16:56:44 Addendum Dictated By: Mervin Warren MD Addendum Signed By: <Electronically signed by Mervin Warren MD in OV> 02/03/251656 Addendum Cosigned By: DD/ TD/TT: 02/03/25 CLINICAL HISTORY: LLQ abd pain CT abdomen and pelvis with contrast Comparison: None provided Findings: Hiatal hernia. 90 degree organoaxial rotation of the right kidney with the renal pelvis ventral and position. There is diffuse fecal material seen throughout the colon. Proximal sigmoid colon pericolonic area of hyperattenuating rim low-attenuation center, 1.2 x 1 cm, image number 71 of 117 series 3. The appendix is within normal limits. The prostate is within normal limits. The bones are intact. IMPRESSION: 1. Proximal sigmoid colon epiploic appendagitis. 2. Constipation. This document has been electronically signed by: Mervin Warren MD on 02/03/2025 16:50:34 External Record Review External record reviewed: Inpatient record Prescription Management I considered prescription management with: Pain Medication Social Determinants Patient?s care significantly limited by Social Determinants of Health including: Other Social Determinant of Health Critical Care Time Critical Care Time Critical Care Time: Yes Total Critical Care Time: 31 Attestation: Critical care time in the amount of 31 minutes has been provided to the patient in terms of direct patient care, frequent reevaluation, review and interpretation of medical data and results, and management of potentially life-threatening conditions. This is all outside of any medical procedures. Discharge Plan Discharge Clinical Impression: Epiploic appendagitis, Constipation Patient Disposition: Home, Self-Care Instructions: Exploratory Laparoscopy (DC) Additional Instructions: You were evaluated in the ED today for left lower abdominal pain. Your blood work is reassuring. Your urine does not demonstrate infection. As discussed, the CT scan of your abdomen shows epiploic appendagitis . Essentially, a small outpouching of fat on your colon is inflamed. This area will eventually necrose and fall off. This does not require surgical intervention. This is not require treatment with antibiotics. Management is with pain control. You were treated with an anti-inflammatory pain medication in the ED today. I am sending Motrin to your pharmacy. Take this every 8 hours to help with pain. If pain persists >1 week, you may follow up with general surgery. I have provided you with a referral. Call them to establish care. They will not call you. Return with any new or worsening symptoms. In the case of an emergency call 911. Prescriptions: New ibuprofen 600 mg tablet 600 mg PO Q8H PRN (Reason: pain (scale score 4-6)) Qty: 30 0RF No Action cyclobenzaprine 5 mg tablet 5 mg PO Q8H PRN (Reason: muscle spasm) Qty: 7 0RF lidocaine [Lidoderm] 5 % adhesive patch,medicated 1 patch topical DAILY Qty: 15 0RF Rx Instructions: leave on most painful area for up to 12 hrs naproxen 500 mg tablet 500 mg PO Q8-12H PRN (Reason: pain (scale score 4-6)) Qty: 14 0RF prednisone 20 mg tablet 20 mg PO DAILY 5 Days Qty: 5 0RF Referrals: [facility] General Surgeons [Provider Group, General Surgery] Shashank Caldera III, MD [Primary Care Provider, Medical] Stand Alone Forms: Work/School Release Print Language: Comoran
[2025-02-03 13:35] LABS: MANUAL DIFF FLAG NO
[2025-02-03 13:37] LABS: Hematocrit 44.7 % (42.0-52.0); Hemoglobin 15.8 g/dl (14.0-18.0); Imm Gran Abs Auto 0.02 X10*3/uL (0.00-0.03); Imm Gran Pct Auto 0.3 % (0.0-0.4); Lymphocytes Absolute Auto 2.0 X10*3/uL (1.2-4.9); Mean Corpuscular HGB Conc 35.3 g/dl (31.0-36.0); Mean Corpuscular Hemoglobin 29.5 pg (27.0-33.0); Mean Corpuscular Volume 83.4 fL (80.0-98.0); NRBC Abs Auto 0.000 X10*3/uL (0.0-0.012); NRBC Pct Auto 0.0 /100WBC (0.0-0.2); Platelet Count 259 X10*3/uL (160-400); Red Blood Count 5.36 X10*6/uL (4.60-5.80); White Blood Count 6.6 X10*3/uL (4.8-10.8)
[2025-02-03 13:51] LABS: Alanine Aminotransferase 17 U/L (0-40); Albumin Level 4.3 g/dL (3.5-5.0); Alkaline Phosphatase 79 U/L (39-117); Anion Gap 12 (12-20); Aspartate Amino Transferase 23 U/L (5-37); Blood Urea Nitrogen 9 mg/dL (9-16); Calcium 9.1 mg/dL (8.4-10.2); Carbon Dioxide 24 mmol/L (22-29); Chloride 109 mmol/L (96-108); Creatinine Clr Calc Pharmacy 86.8; Estimated Glomerular Filt Rate > 60; Magnesium 2.1 mg/dL (1.6-2.6); Potassium 3.9 mmol/L (3.3-5.1); Sodium 141 mmol/L (135-145); Total Protein 7.3 g/dL (6.5-8.0)
[2025-02-03 14:44] VITALS: BP 101/56; PULSE 72; RESP 18; O2SAT 97
--- OUTSIDE RECORDS SUMMARY | 2025-02-03 14:45 | XMS_ITS | Clinical Summary ---
Author Organization [facility] Address [address] [place] [address] Phone Care Team Providers Care Counter Person Name Role Phone Oliver Zarate Primary Care Provider [phone] Immunizations Immunization Administration Dates Next Due DTP [...] age to complete this topic Care Teams Counter Person Relationship Specialty Start Date End Date Olivre Zarate [address] [place] [address] PCP - General 01/01/17
--- OUTSIDE RECORDS SUMMARY | 2025-02-03 14:45 | XMS_ITS | Clinical Summary ---
Author Organization [facility] [address] [place] [address] [place] [phone] Phone Care Team Providers Care Maint Mechanic Name Role Phone Shashank Caldera MD Primary Care Provider [phone] Allergies No known active allergies Medications cyclobenzaprine [...] 9:00 AM EDT Office Visit Adult Medicine [address] [phone] Shashank Caldera MD Routine physical examination (Primary Dx); High cholesterol; Screening for diabetes mellitus; Seizure disorder (CMS/HCC V24, CMS/HCC V28) from Last 3 Months Immunizations Name Administration Dates Next Due Tdap Tetanus diptheria acell ular pertussis (Boostrix; Adacel) 7yo and older 11/21/2024,05/03/2014 Medical History Medical History Date Comments Seizure disorder ([facility] V24, CMS/[facility] V28) 02/22 DX:Seizure disorder (HCC) [...] for your loved ones. For example, child specialist or elderly care for an older adult? [...] 9:00 AM EDT Office Visit Adult Medicine [address] [phone] Shashank Caldera MD [address] [place] [address] Health Maintenance Due Date Last Done Comments [...] LAB CHEMISTRY METHOD 11/21/2024 2:05 PM EDT [facility] Triglycerides 163(H) 0 - 150 mg/dL LAB CHEMISTRY METHOD 11/21/2024 2:05 PM EDT [facility] HDL 33(L) >=40 mg/dL LAB CHEMISTRY METHOD 11/21/2024 2:05 PM EDT [facility] LDL Calculated 107(H) 0 - 100 mg/dL LAB CHEMISTRY METHOD 11/21/2024 2:05 PM EDT [facility] VLDL Cholesterol Dav 32.6 mg/dL LAB CHEMISTRY METHOD 11/21/2024 2:05 PM EDT [facility] Non HDL Chol. (LDL+VLDL) 140 <145 mg/dL LAB CHEMISTRY METHOD 11/21/2024 2:05 PM EDT [facility] Chol/HDL Ratio 5.2(H) 0.0 - 4.4 LAB CHEMISTRY METHOD 11/21/2024 2:05 PM T [facility] Blood Venous blood specimen / Unknown Venipuncture / Unknown 11/21/2024 9:41 AM EDT 11/21/2024 9:41 AM EDT us Shashank Caldera MD LAB BLOOD ORDERABLES Final Resu lt [facility] [address] [place] [address], * (ABNORMAL) CBC auto differential (11/21/2024 9:41 AM EDT) Pathologist [facility] WBC 6.7 4.8 - 10.8 K/mcL LAB HEMETOLOGY METHOD 11/21/2024 12:15 PM T [facility] RBC 5.50 4.50 - 5.50 M/mcL LAB HEMETOLOGY METHOD 11/21/2024 12:15 PM [facility] Hemoglobin 16.3 13.5 - 17.5 g/dL LAB HEMETOLOGY METHOD 11/21/2024 12:15 PM [facility] Hematocrit 48.3 42.0 - 54.0 % LAB HEMETOLOGY METHOD 11/21/2024 12:15 PM [facility] MCV 88.1 79.0 - 98.0 FL LAB HEMETOLOGY METHOD 11/21/2024 12:15 PM [facility] MCH 29.7 27.0 - 32.0 pcg LAB HEMETOLOGY METHOD 11/21/2024 12:15 PM [facility] MCHC 33.7 32.0 - 37.0 g/dL LAB HEMETOLOGY METHOD 11/21/2024 12:15 PM [facility] RDW 12.1 11.0 - 15.0 % LAB HEMETOLOGY METHOD 11/21/2024 12:15 PM [facility] Platelets 218 130 - 400 K/mcL LAB HEMETOLOGY METHOD 11/21/2024 12:15 PM [facility] MPV 11.5(H) 7.0 - 11.0 FL LAB HEMETOLOGY METHOD 11/21/2024 12:15 PM [facility] NRBC 0.0 <1.0 % LAB HEMETOLOGY METHOD 11/21/2024 12:15 PM [facility] NRBC Absolute 0.00 <0.10 K/mcL LAB HEMETOLOGY METHOD 11/21/2024 12:15 PM [facility] Neutrophils Relative 61.3 % LAB HEMETOLOGY METHOD 11/21/2024 12:15 PM [facility] Lymphocytes Relative 29.1 % LAB HEMETOLOGY METHOD 11/21/2024 12:15 PM [facility] Monocytes Relative 7.7 % LAB HEMETOLOGY METHOD 11/21/2024 12:15 PM [facility] Eosinophils Relative 1.0 % LAB HEMETOLOGY METHOD 11/21/2024 12:15 PM [facility] Basophils Relative 0.3 % LAB HEMETOLOGY METHOD 11/21/2024 12:15 PM [facility] Immature Granulocytes Relative 0.6 % LAB HEMETOLOGY METHOD 11/21/2024 12:15 PM [facility] Neutrophils Absolute 4.13 1.50 - 7.00 K/mcL LAB HEMETOLOGY METHOD 11/21/2024 12:15 PM [facility] Lymphocytes Absolute 1.96 1.00 - 5.00 K/mcL LAB HEMETOLOGY METHOD 11/21/2024 12:15 PM [facility] Monocytes Absolute 0.52 0.20 - 1.00 K/mcL LAB HEMETOLOGY METHOD 11/21/2024 12:15 PM [facility] Eosinophils Absolute 0.07 0.00 - 0.50 K/mcL LAB HEMETOLOGY METHOD 11/21/2024 12:15 PM [facility] Basophils Absolute 0.02 0.00 - 0.20 K/mcL LAB HEMETOLOGY METHOD 11/21/2024 12:15 PM [facility] Immature Granulocytes Absolute 0.04(H) 0.00 - 0.03 K/mcL LAB HEMETOLOGY METHOD 11/21/2024 12:15 PM [facility] Blood Venous blood specimen / Unknown Venipuncture / Unknown 11/21/2024 9:41 AM EDT 11/21/2024 9:41 AM EDT us Shashank Caldera MD LAB BLOOD ORDERABLES Final Resu lt [facility] [address] [place] [address], [place] [phone] * (ABNORMAL) Comprehensive metabolic panel (11/21/2024 9:41 AM EDT) Sodium 140 133 - 145 mmol/L LAB CHEMISTRY METHOD 11/21/2024 2:05 PM [facility] Potassium 4.2 3.5 - 5.5 mmol/L LAB CHEMISTRY METHOD 11/21/2024 2:05 PM [facility] Chloride 111(H) 96 - 110 mmol/L LAB CHEMISTRY METHOD 11/21/2024 2:05 PM [facility] CO2 23 21 - 32 mmol/L LAB CHEMISTRY METHOD 11/21/2024 2:05 PM [facility] Anion Gap 6 3 - 11 LAB CHEMISTRY METHOD 11/21/2024 2:05 PM [facility] Glucose 87 70 - 100 mg/dL LAB CHEMISTRY METHOD 11/21/2024 2:05 PM [facility] BUN 8 5 - 25 mg/dL LAB CHEMISTRY METHOD 11/21/2024 2:05 PM [facility] Creatinine 1.04 0.70 - 1.30 mg/dL LAB CHEMISTRY METHOD 11/21/2024 2:05 PM [facility] eGFR 93 >=60 mL/min/1. 73m2 LAB CHEMISTRY METHOD 11/21/2024 2:05 PM [facility] Comment:Calculation based on the Chronic Kidney Disease Epidemiology Collaboration (CKD-EPI) equation refit without adjustment for race. BUN/Creatinine Ratio 7.7 LAB CHEMISTRY METHOD 11/21/2024 2:05 PM [facility] Calcium 9.2 8.5 - 10.5 mg/dL LAB CHEMISTRY METHOD 11/21/2024 2:05 PM EDT [facility] AST (SGOT) 23 10 - 42 unit/L LAB CHEMISTRY METHOD 11/21/2024 2:05 PM [facility] ALT (SGPT) 29 10 - 60 unit/L LAB CHEMISTRY METHOD 11/21/2024 2:05 PM [facility] Alkaline Phosphatase 89 42 - 121 unit/L LAB CHEMISTRY METHOD [facility]24 [facility] Total Protein 7.2 6.0 - 8.0 g/dL LAB CHEMISTRY METHOD 11/21/2024 2:05 PM [facility] Albumin 3.8 3.2 - 5.0 g/dL LAB CHEMISTRY METHOD 11/21/2024 2:05 PM [facility] Total Bilirubin 0.3 0.0 - 1.4 mg/dL LAB CHEMISTRY METHOD 11/21/2024 2:05 PM [facility] Blood Venous blood specimen / Unknown Venipuncture / Unknown 11/21/2024 9:41 AM EDT 11/21/2024 9:41 AM EDT us Shashank Caldera MD LAB BLOOD ORDERABLES Final Resu lt [facility] [address] [place] [address], from Last 3 Months Insurance [facility] [employer] Care Teams Maint Mechanic Relationship Specialty Start Date End Date Shashank Caldera MD PCP - General Internal Medicine 01/05/14
--- OUTSIDE RECORDS SUMMARY | 2025-02-03 14:45 | XMS_ITS | Encounter Summary ---
Author Organization [facility] Address [address] [place] [phone] Phone Care Team Providers Care [employer]cre[employer] Mechanical Name Role Phone Oliver Zarate Primary Care Provider [phone] Encounter Details Date Type Department Care Team (Late st Contact Info) Description 03/24/2012 Documentation [facility] [place] [facility] [address] [place] [address] Family Medicine, Physician [address] [place], [place] [id number] Social History Tobacco Use Types Packs/Day Years [...] on filedocumented in this encounter Care Teams [employer] Relationship Specialty Start Date End Date Oliver Zarate [address] [place] [address] PCP - General 01/01/17 documented as of this encounter
[2025-02-03] MEDS: iohexoL 350 MG/ML 100 ML INFUS..BTL IV (16:01)
[2025-02-03 16:29] VITALS: BP 99/62; PULSE 65; RESP 18; O2SAT 98
[2025-02-03 16:38] LABS: Appearance Urine Clear; Glucose Urine UA Negative (Negative); PH 6.5 (5.0-9.0); Specific Gravity - Urine 1.020 (1.005-1.025)
[2025-02-03 17:26] VITALS: BP 99/62; PULSE 65; RESP 18; TEMP 37.1; O2SAT 98
== END 2025-02-03 17:26 | disposition home or self-care (01) ==
PROVIDERS: Physician Assistant Medical; Emergency Provider Emergency Medicine; PCP Internal Medicine
DX: K63.89 Other specified diseases of intestine (principal); K59.00 Constipation, unspecified; R10.32 Left lower quadrant pain
CPT/HCPCS: 36415; 74177; 80053; 81003; 83735; 85025; 96361; 96374; 99284; J1885; Q9967

== ENCOUNTER → 2025-02-03 15:17 | Outpatient (BNV) | payer OTHER, SELFPAY | PROVIDERS: Emergency Provider Emergency Medicine; PCP Internal Medicine; Visit Provider Radiology Diagnostic Radiology | DX: K59.00 Constipation, unspecified (principal); K38.8 Other specified diseases of appendix | CPT/HCPCS: 74177 ==